=== PATIENT | male | born 2005 | race African-American/Black ===

== ENCOUNTER 2023-05-26 14:34 | Emergency (ER) | payer MEDICAID ==
[~2023-05-26] VITALS: Ht 190.5 cm; Wt 57.0 kg
[2023-05-26 14:52] VITALS: O2SAT 98
[2023-05-26] MEDS ORDERED: NAPR-681 PO (16:05)
[2023-05-26 16:47] VITALS: BP 122/78; PULSE 71; RESP 16; TEMP 98.1
== END 2023-05-26 16:49 | disposition home or self-care (01) ==
LOC: ER 14:54
DX: S80.02XA Contusion of left knee, initial encounter (principal); J45.909 Unspecified asthma, uncomplicated; V49.40XA Driver injured in collision with unspecified motor vehicles in traffic accident, initial encounter; Y93.89 Activity, other specified; Y92.89 Other specified places as the place of occurrence of the external cause; Y99.8 Other external cause status
CPT/HCPCS: 73562; 99283